=== PATIENT | female | born 1975 | race Caucasian/White ===

== ENCOUNTER 2018-02-16 12:59 | Emergency (ER) | payer BC ==
[2018-02-16 13:39] VITALS: BP 112/78
--- NOTE | 2018-02-16 14:26 | UC ---
Throat Pain/Nasal Henry HPI - HPI Summary HPI Summary: Patient presents with 2 days of nasal congestion and sore throat. Has pain with swallowing. Denies cough, fever, ear pain, nausea/vomiting. - History of Current Complaint Chief Complaint: UCRespiratory Stated Complaint: SINUS CONGESTION,ST Time Seen by Provider: 02/16/18 14:10 Hx Obtained From: Patient Hx Last Menstrual Period: 01/28/18 Onset/Duration: Gradual Onset, Lasting Days, Still Present Severity: Moderate Pain Intensity: 5 Pain Scale Used: 0-10 Numeric Cough: None Associated Signs & Symptoms: Positive: Nasal Discharge. Negative: Fever, Vomiting - Allergies/Home Medications Allergies/Adverse Reactions: Allergies Allergy/AdvReac Type Severity Reaction Status Date / Time No Known Allergies Allergy Verified 02/16/18 13:39 Home Medications: Home Medications Docusate CAP* [Colace Cap*] 100 mg PO DAILY 02/16/18 [History Confirmed 02/16/18 ] Magnesium [Magnesium Elemental] 30 mg PO DAILY 02/16/18 [History Confirmed 02/16] PMH/Surg Hx/FS Hx/Imm Hx Other GI/ History: IBS - Surgical History Surgical History: Yes Surgery Procedure, Year, and Place: 1989 HERNIA REPAIR RIGHT SIDE [facility], tendon repair in left foot01/30 - Family History Known Family History: Negative: Hypertension - Social History Alcohol Use: Occasionally Alcohol Amount: 1 drink q week Substance Use Type: None Smoking Status (MU): Never Smoked Tobacco Review of Systems Constitutional: Negative ENT: Sore Throat, Nasal Discharge Respiratory: Negative Cardiovascular: Negative Gastrointestinal: Negative All Other Systems Reviewed And Are Negative: Yes Physical Exam Triage Information Reviewed: Yes Appearance: Well-Appearing, No Pain Distress, Well-Nourished Vital Signs: Initial Vital Signs Temp 98.9 F 02/16/18 13:32 Pulse 88 02/16/18 13:32 Resp 16 02/16/18 13:32 BP 112/78 02/16/18 13:32 Pulse Ox 97 02/16/18 13:32 Vital Signs Reviewed: Yes Eyes: Positive: Conjunctiva Clear ENT: Positive: Hearing grossly normal, Pharynx normal, TMs normal Neck: Positive: Supple, Nontender, No Lymphadenopathy Respiratory Exam: Normal Cardiovascular Exam: Normal Abdomen Description: Positive: Soft Musculoskeletal: Positive: No Edema Neurological: Positive: Alert Psychological: Positive: Age Appropriate Behavior Skin: Negative: rashes Diagnostics - Laboratory Diagnostic Studies Completed/Ordered: STREP NEG Throat Pain/Nasal Course/Dx - Differential Dx/Diagnosis Provider Diagnoses: ACUTE PHARYNGITIS Discharge - Sign-Out/Discharge Documenting (check all that apply): Discharge - Discharge Plan Condition: Stable Disposition: HOME Patient Education Materials: Pharyngitis (ED) Referrals: Jose Enrique Souza MD [Primary Care Provider] - If Needed Additional Instructions: STREP TEST NEGATIVE. YOUR SYMPTOMS ARE LIKELY VIRALLY MEDIATED AND SHOULD RESOLVE ON THEIR OWN WITH TIME. NO INDICATION FOR ANTIBIOTICS AT PRESENT. REST, HYDRATE, OTC MEDS NEEDED. SEEK FOLLOW-UP IF YOU ARE NOT IMPROVING OVER THE NEXT 1-2 WEEKS. - Billing Disposition and Condition Condition: STABLE Disposition: HOME
== END 2018-02-16 14:27 | disposition home or self-care (01) ==
LOC: UCEAST 12:59
DX: J02.9 Acute pharyngitis, unspecified (principal); R09.81 Nasal congestion; K58.9 Irritable bowel syndrome, unspecified
CPT/HCPCS: 87651; 99211; G0463

== ENCOUNTER 2020-02-08 14:23 | Emergency (ER) | payer BC ==
--- NOTE | 2020-02-08 17:11 | UC ---
Throat Pain/Nasal Henry HPI - HPI Summary HPI Summary: patient had a light cough 5 days ago, also had a crown fall out of tooth that day. over next 2-3 days she developed R sided nasal congestion. she saw DDS 2 days ago and had R lower molar pulled. yesterday R sided sinus pain was worse, she used steam to loosen sinuses and L side drained brownish fluid, R side remained plugged (however is not blowing nose d/t tooth extraction.) Today took ibuprofen and Tylenol and pain resolved, also cough has been much better over last 2 days. denies fever, chills, SOB, travel or known contact with COVID 19 - History of Current Complaint Chief Complaint: UCHeadache Stated Complaint: SINUS COMPLAINT Time Seen by Provider: 02/08/20 15:58 Hx Obtained From: Patient Hx Last Menstrual Period: 12/21/19 ?: No Onset/Duration: Gradual Onset Severity: Mild Pain Intensity: 4 Cough: Nonproductive Associated Signs & Symptoms: Positive: Sinus Discomfort, Nasal Discharge. Negative: Fever - Allergies/Home Medications Allergies/Adverse Reactions: Allergies Allergy/AdvReac Type Severity Reaction Status Date / Time No Known Allergies Allergy Verified 02/08/20 16:07 Home Medications: Home Medications Lactobacillus Acidophilus [Probiotic] 2 cap PO DAILY 10/11/15 [History Confirmed 02/08/20] Ibuprofen TAB* [Motrin TAB* 400 MG] 600 mg PO Q6H PRN 08/11/16 [History Confirmed 02/08/20] Astragalus Root 1 cap PO BID 09/01/16 [History Confirmed 02/08/20] Emergen-C Blue 1 cap PO DAILY 09/01/16 [History Confirmed 02/08/20] Docusate CAP* [Colace Cap*] 100 mg PO DAILY 02/16/18 [History Confirmed 02/08/20 ] Magnesium 30 mg PO DAILY 02/16/18 [History Confirmed 02/08/20] Acetaminophen [Tylenol Extra Strength] 500 mg PO Q6HR 02/08/20 [History Confirmed 02/08/20] Cefdinir cap* [Cefdinir 300 MG cap (NF)] 300 mg PO BID #20 cap 02/08/20 [Rx] Collagen Powder 1 tab PO DAILY 02/08/20 [History Confirmed 02/08/20] Elderberry Fruit/Honey [Little Remedies Cough-Immune] 118 ml PO DAILY 02/08/20 [ History Confirmed 02/08/20] PMH/Surg Hx/FS Hx/Imm Hx Previously Healthy: Yes - Surgical History Surgical History: Yes Surgery Procedure, Year, and Place: 1989 HERNIA REPAIR RIGHT SIDE [facility], tendon repair in left foot01/30 - Family History Known Family History: Positive: None Negative: Hypertension - Social History Occupation: Employed Full-time Lives: With Family Alcohol Use: Occasionally Alcohol Amount: 1 drink q week Substance Use Type: None Smoking Status (MU): Never Smoked Tobacco Review of Systems All Other Systems Reviewed And Are Negative: Yes Constitutional: Positive: Negative. Negative: Fever, Chills Skin: Positive: Negative. Negative: Rash Eyes: Positive: Negative ENT: Positive: Dental Pain - extraction doing well, Nasal Discharge, Sinus Congestion, Sinus Pain/Tenderness. Negative: Sore Throat, Ear Ache Respiratory: Positive: Cough - resolving. Negative: Shortness Of Breath Cardiovascular: Positive: Negative Gastrointestinal: Positive: Negative Neurological/Mental Status: Positive: Headache - R frontal Psychological: Positive: Negative Is Patient Immunocompromised?: No Physical Exam Triage Information Reviewed: Yes Appearance: Well-Appearing, No Pain Distress, Well-Nourished Vital Signs Reviewed: Yes Eye Exam: Normal Eyes: Positive: Conjunctiva Clear ENT: Positive: Pharynx normal, Nasal congestion, TMs normal, Sinus tenderness Dental Exam: Other - R lower molar socket not swollen, red or draining Respiratory Exam: Normal Respiratory: Positive: Lungs clear Cardiovascular Exam: Normal Cardiovascular: Positive: RRR Neurological Exam: Normal Psychological Exam: Normal Skin Exam: Normal Throat Pain/Nasal Course/Dx - Differential Dx/Diagnosis Differential Diagnosis/HQI/PQRI: Sinusitis, URI, Other - COVID 19 Provider Diagnosis: Sinusitis Discharge ED - Sign-Out/Discharge Documenting (check all that apply): Patient Departure All imaging exams completed and their final reports reviewed: No Studies - Discharge Plan Condition: Good Disposition: HOME Prescriptions: Cefdinir cap* [Cefdinir 300 MG cap (NF)] 300 mg PO BID #20 cap Patient Education Materials: Sinusitis (ED) Referrals: Jose Enrique Souza MD [Primary Care Provider] - 3 Days (if no better) Additional Instructions: drink plenty of fluids and rest start antibiotic and take as directed use Tylenol for pain, suggest sudafed as directed for nasal congestion return if your symptoms worsen - Billing Disposition and Condition Condition: GOOD Disposition: Home
[2020-02-08 17:17] VITALS: BP 147/91
== END 2020-02-08 17:32 | disposition home or self-care (01) ==
LOC: UCEAST 14:23
DX: J32.9 Chronic sinusitis, unspecified (principal)
CPT/HCPCS: 99202; G0463